=== PATIENT | female | born 1975 | race Caucasian/White ===

== ENCOUNTER 2024-06-04 06:05 | Day surgery (SDC) | payer OTHER ==
[2024-06-04 06:23] VITALS: O2SAT 97
[2024-06-04] MEDS: celeBREX 100 MG PO ONE (06:43)
[2024-06-04] MEDS: NEURONTIN PO ONE (06:43)
[2024-06-04] MEDS: TYLENOL EXTRA STRENGTH 500 MG PO ONE (06:43)
[2024-06-04] MEDS: CEFAZOLIN 2 GM/100 ML NaCl 2 GM/100 ML IVPB IV SCH (06:44)
[2024-06-04] MEDS: Lactated Ringers 1,000 ML IV SCH (06:44)
[2024-06-04] MEDS: Decadron 4 MG PO ONE (06:44)
[2024-06-04 06:55] LABS: Hematocrit 43.3 % (34.1-44.9); Hemoglobin 14.6 g/dL (11.2-15.7); Mean Cell Volume 85.2 fL (79.4-94.8); Mean Corpuscular Hemoglobin 28.7 pg (25.6-32.2); Mean Corpuscular Hgb Concent. 33.7 g/dL (32.2-35.5); Mean Platelet Volume 8.7 fL (9.4-12.3); Platelet Count 245 x10^3/uL (182-369); Red Blood Count 5.08 x10^6/uL (3.93-5.22); Red Cell Distribution Width 12.8 % (11.7-14.4); White Blood Count 9.1 x10^3/uL (3.98-10.04)
[2024-06-04 07:08] LABS: ALBUMIN 4.3 g/dL (3.5-5.0); ANION GAP 11.8 MEQ/L (5-15); BILIRUBIN,TOTAL 0.5 mg/dL (0.2-1.3); Calcium 9.2 mg/dL (8.4-10.2); Creatinine 1 0.78 mg/dL (0.52-1.04); EST GLOMERULAR FILTRATION RATE 93.6 ML/MIN; Total Protein 7.1 g/dL (6.3-8.2)
[2024-06-04 07:09] LABS: Potassium 4.7 mmol/L (3.5-5.1)
[2024-06-04] MEDS ORDERED: Xylocaine-Mpf 2% 5 Ml Vial ONE (07:22)
[2024-06-04] MEDS ORDERED: TORAdol 30 mg Injection ONE (07:22)
[2024-06-04] MEDS ORDERED: DIPRIVAN 200 MG/20 ML IV ONE (07:22)
[2024-06-04] MEDS ORDERED: BRIDION 200MG/2ML IV ONE (07:22)
[2024-06-04] MEDS ORDERED: ROCURONIUM BROMIDE IV ONE (07:22)
[2024-06-04] MEDS ORDERED: SUBLIMAZE 100 MCG/2 ML ONE ×2 (07:22→09:07)
[2024-06-04] MEDS ORDERED: Zofran 4 MG/2 ML VIAL ONE (07:22)
[2024-06-04] MEDS ORDERED: Versed 2 MG/2 ML Injection ONE (07:22)
[2024-06-04] MEDS ORDERED: Decadron 4 MG INJ ONE (07:22)
[2024-06-04] MEDS ORDERED: EXPAREL 133 MG/10 ML VIAL IJ ONE (07:26)
[2024-06-04] MEDS ORDERED: Marcaine Mpf 0.5% Vial 30 Ml ONE (07:26)
[2024-06-04] MEDS ORDERED: PHENYLEPHRINE HCL ONE (09:51)
[2024-06-04] MEDS ORDERED: Lactated Ringers 1,000 ML IV ONE (09:52)
--- NOTE | 2024-06-04 11:04 | XRAY ---
Indication: Left foot Lapidus arthrodesis. Intraoperative fluoroscopy provided for 4 minutes 45 seconds. 12 digital spot images submitted for interpretation ultimately demonstrates 1st tarsometatarsal arthrodesis with intact hardware. Correlate with intraoperative findings/report.
[2024-06-04 12:12] VITALS: RESP 18
[2024-06-04 12:36] VITALS: BP 107/63; PULSE 80; TEMP 97.4
--- NOTE | 2024-06-04 14:13 | XRAY ---
Four minutes and 45 seconds of fluoroscopy was used in surgery for a left foot Lapidus arthrodesis.
--- NOTE | 2024-06-07 12:07 | OP ---
SURGERY DATE/TIME: 06/04/2024 [id number] PREOPERATIVE DIAGNOSES: 1) Left hallux abductovalgus. 2) Hypermobility, left foot. 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 4) Metatarsal deformity. 5) Left foot pain. POSTOPERATIVE DIAGNOSES: 1) Left hallux abductovalgus. 2) Hypermobility, left foot. 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 4) Metatarsal deformity. 5) Left foot pain. PROCEDURES: 1) Lapidus arthrodesis 1st tarsometatarsal joint. 2) Silver osteotomy with lateral release. 3) Repair of medial collateral ligament of the 1st metatarsophalangeal joint. SURGEON: Kranthi Eubanks DPM. STAFF PHYSICAL THERAPIST: JAY Deutsch. ANESTHESIA: General plus a preoperative block popliteal and saphenous, see anesthesia report for details. HEMOSTASIS: Thigh tourniquet set to 300 mmHg for a total of 60 total tourniquet minutes. ESTIMATED BLOOD LOSS: Approximately 10 mL. MATERIALS: 1) InCore Lapidus 5.9 x 28 mm post. 2) 3.5 x 40 and 3.5 x 28 mm screws. 3) 1.45 JuggerKnot. 4) 4-0 Monocryl. 5) 3-0 nylon. INJECTABLES: See anesthesia report for details. INDICATIONS FOR PROCEDURE: The patient is a very pleasant 48-year-old female known to my service for left foot pain. Patient presented with significant amount of pain and failure of conservative therapies for a severe bunion to the left lower extremity. Patient had significant restriction in shoe gear, weightbearing, and activity level. From that standpoint, patient was made aware of her options and chose to proceed with surgical intervention at this time. Patient has been made aware of all risks, complications, and benefits of surgical intervention at this time including, but not limited to, infection, hematoma, seroma, possibility of delayed wound healing, non-wound healing, and possible need for further surgical intervention at a later date. No guarantees were provided as to the outcome. Plenty of time was allowed for the patient to ask questions, which were answered to her apparent satisfaction. At this time, we decided to proceed. DESCRIPTION OF PROCEDURE AND FINDINGS: Patient was brought into the PACU prior to the procedure and provided a popliteal and saphenous block; please see anesthesia report for details. Following this, patient was brought into the operating room and placed on the operating room table in the supine position. General anesthesia was then administered until the patient was adequately sedated. A well-padded tourniquet was applied to the patient's right thigh and the tourniquet was set to 300 mmHg. From that standpoint, the right lower extremity was prepped and draped in the typical sterile fashion and lowered onto the surgical field. At this time, an Esmarch was utilized to exsanguinate the leg and the tourniquet was inflated to 300 mmHg. A linear incision was carried down following just medial to the extensor hallucis longus tendon. This was carried down utilizing a 10 blade, making sure not to damage any neurovascular structures along the way. Any neurovascular structures that were along the way that were encountered, were either retracted or cauterized. From that standpoint, once the medial cuneiform was identified as well as the 1st tarsometatarsal joint base, dissection was carried around the joint as well as into the medial and intermediate cuneiform where the post guide was placed under fluoroscopic guidance. The assessment of the position was deemed to be adequate and a K-wire was placed in the post position. The guide was then removed and the cutting jig was then placed. Once the cuts were performed perpendicular to the longitudinal axis of the 1st metatarsal as well as parallel with the 2nd metatarsal base respectively to the 1st metatarsal and the medial cuneiform the post was drilled. The reamings were saved for later use for autograft and then the post was placed. K-wires were then introduced into the 1st metatarsal while holding the sesamoid position in the adequate orientation. Once this was performed, the joint was distracted and the cartilage was removed from the site following the cuts. The joint was compressed and the position was deemed to be adequate, correcting for the intramedullary IM 1.2 angle and the sesamoid position as well as on lateral with a foot plate. The plantarflexion was deemed to be adequate. From that standpoint, decision was made to go ahead and prep the joint utilizing a 2.0 mm drill and an osteotome and mallet utilized to fenestrate and fish scale. From that standpoint, the reamings were then placed within the fusion site. The joint was then compressed and a 3.5 x 40 and a 3.5 x 28 screw was placed gaining excellent compression through the 1st tarsometatarsal Lapidus arthrodesis site. Once this was performed, it was assessed that the range of motion was excellent; however, there was some atavistic change to the 1st metatarsal head and the silver osteotomy with lateral release was necessary. Under fluoroscopic guidance, a 15 blade was utilized to perform the lateral release, releasing the suspensory ligament at the medial aspect gaining excellent mobilization in the transverse plane of the 1st metatarsal. Once this was performed, the incision was then carried to the level of the 1st metatarsal head medially, being careful not to damage any neurovascular structures. The capsule was dissected in parallel orientation to the 1st metatarsophalangeal joint. Once the joint was exposed, the capsule was then reflected proximally, exposing the atavistic metatarsal head where there was some osteoarthritis that was identified. This was shaved utilizing an 18 mm sagittal saw. Once this was performed and removed, the cut was assessed and deemed to be adequate. Copious amounts of sterile saline were utilized to flush the surgical site. A 1.45 JuggerKnot was then placed into the base of the proximal phalanx gaining excellent apposition and, utilizing the robust capsule, the capsule was closed utilizing the 1.45 JuggerKnot, holding the position and maintaining the range of motion excellently. From that standpoint, capsular closure continued with 4-0 Monocryl. Once again, copious amounts of sterile saline were utilized to flush the surgical site; 4-0 Monocryl was utilized to coapt the subcutaneous skin edges in a simple buried-type fashion and then 3-0 nylon was utilized in a horizontal mattress-type fashion to dmitry the skin edges. From that standpoint, a dressing consisting of Betadine, Adaptic, 4 x 4, Kerlix, and Larry was applied to the patient's left lower extremity. Patient was reversed from anesthesia and returned to the postoperative anesthesia care unit with vital signs stable and vascular status intact. Patient handled the anesthesia as well as the procedure without significant complication. Postoperative orders as indicated in the patient's discharge chart.
== END 2024-06-04 12:07 | disposition home or self-care (01) ==
LOC: SDC 06:05
PROVIDERS: ATTEND Podiatrist Foot & Ankle Surgery
DX: M20.12 Hallux valgus (acquired), left foot (principal); M35.7 Hypermobility syndrome; M25.375 Other instability, left foot; M21.962 Unspecified acquired deformity of left lower leg; M79.672 Pain in left foot
CPT/HCPCS: 26540; 28297; 28306; 36415; 73630; 76000; 76937; 80053; 85027; C1713; J0690; J1100; J1885; J2250; J2371; J2405; J2704; J3010; A9270-GY